=== PATIENT | female | born 1990 | race African-American/Black ===

== ENCOUNTER 2017-11-15 03:11 | Emergency (ER) | payer MEDICAID ==
[~2017-11-15] VITALS: Ht 154.9 cm; Wt 55.0 kg
[2017-11-15 03:24] VITALS: BP 119/61
== END 2017-11-15 07:00 | disposition left against medical advice (07) ==
LOC: ER 03:11
DX: H92.01 Otalgia, right ear (principal); Z53.21 Procedure and treatment not carried out due to patient leaving prior to being seen by health care provider